=== PATIENT | male | born 1975 | race Caucasian/White ===

== ENCOUNTER 2019-12-15 15:00 | Outpatient (RCR) | payer OTHER, MEDICARE, MEDICAID, SELFPAY ==
--- NOTE | 2019-12-20 09:11 | MHC.PT.DC ---
[facility] [place] [facility] [place] Office [place] Office [address] [phone] F: [phone] F: [phone] F: [phone] F: [phone] Physical Therapy Discharge Report Diagnosis: Date of Surgery: N/A Date of Evaluation: 09/27/19 Date of Discharge: 12/20/19 Treatments to Date: 13 Cancellations to Date: 0 No Shows to Date: 2 Discharge Status: Improved Function Independent with HEP Discharge Summary: The patient has full active range of motion and within normal limit strength of his shoulder. He is independent with his home exercise program. He was educated in a return to gym program should he return to his gym routine. The patient is discharged from this physical therapy plan of care. Electronically signed by: Steff Merlos PT, DPT Please sign and return to therapist. Thank you for your referral.
== END 2019-12-20 09:13 | disposition other institution (70) ==
LOC: HO.PT 15:00
PROVIDERS: Visit Provider Internal Medicine
DX: M54.9 Dorsalgia, unspecified (principal); M25.511 Pain in right shoulder; M54.2 Cervicalgia
CPT/HCPCS: 97110

== ENCOUNTER → 2019-12-17 14:15 | Outpatient (BNVA) | payer MEDICARE, MEDICAID, OTHER, SELFPAY | PROVIDERS: PCP Internal Medicine; Visit Provider Urology | DX: R35.1 Nocturia (principal) | CPT/HCPCS: 51798; 81002; 99212 ==

== ENCOUNTER → 2020-04-19 14:17 | Outpatient (BNVA) | payer MEDICARE, MEDICAID, OTHER, SELFPAY | PROVIDERS: PCP Internal Medicine; Visit Provider Urology | DX: N32.0 Bladder-neck obstruction (principal); R35.1 Nocturia | CPT/HCPCS: 81002; 99212 ==

== ENCOUNTER 2020-05-08 07:25 | Day surgery (SDC) | payer MEDICARE, MEDICAID, SELFPAY ==
[2020-04-28 18:48] VITALS: BMI 33.9
--- NOTE | 2020-05-05 11:59 | P.CONAN_ITS ---
Documented by User: Tiffany Luevano 05/05/20 12:00 HPI - Anesthesia Eval Consult details Narrative: 44yo M for Green Light Laser Ablation Prostate PMFSH Active Problems Active Problems: All Active Problems (Updated 04/28/20 @ 18:35 by Meghan Noel RN) Gastroesophageal reflux disease (Acute) Nocturia more than twice per night (Acute) Bladder outlet obstruction (Acute) Shoulder pain (Acute) Pain in back (Acute) Pain in the neck (Acute) Past Medical History Medical History Asthma Bladder outlet obstruction Elevated cholesterol Gastroesophageal reflux disease Pain in back Pain in the neck Shoulder pain Family History Family History Father Diabetes Mother Diabetes Maternal Grandfather Lung cancer Surgical History Surgical History History of open reduction and internal fixation (ORIF) procedure Social History Social History Smoking Status: Current every day smoker Packs Per Day: 1 Cigarettes Per Day: 20.0 Smoked in Last 30 Days: Yes Patient Interested in Nicotine Replacement: No Use of substances other than those prescribed or required for medical reasons: No Have you been hit, kicked, punched, or otherwise hurt by someone within the past year? If so, by whom?: No Advance Directives: No Advance Directives Information Provided: No Advance Directives on File: No Recently lost weight without trying: No Meds Allergies Allergy/AdvReac Type Severity Reaction Status Date / Time fluconazole [From DIFLUCAN] Allergy Mild MOTH SORES Verified 05/08/20 08:49 blossom pure Allergy Mild skin Uncoded 05/08/20 08:49 reaction Home Medications Medication Instructions Recorded Confirmed Last Taken Type cyclobenzaprine 10 mg tablet 10 mg PO Q8H PRN 12/10/19 04/28/20 Unknown History ibuprofen 600 mg tablet 600 mg PO Q8H PRN 12/10/19 04/28/20 Unknown History tamsulosin 0.4 mg capsule 0.4 mg PO DAILY 12/10/19 05/08/20 05/08/20 06:30 History adalimumab 80 mg/0.8 mL (x 1) and ea SUBCUT 04/19/20 Unknown History 40 mg/0.4 mL (x 2) subcutan pen kit Exam Exam Date and Time: May 05, 2020 1159 Height,Weight and Vital Signs: Height 5 ft 6 in Weight 95.254 kg Assessment and Plan Assessment Anesthesia Assessment: Chart Reviewed Documented by User: Nory Pizarro 05/08/20 09:47 [facility] Past Medical History Medical History Asthma Bladder outlet obstruction Elevated cholesterol Gastroesophageal reflux disease Pain in back Pain in the neck Shoulder pain Family History Family History Father Diabetes Mother Diabetes Maternal Grandfather Lung cancer Surgical History Surgical History History of open reduction and internal fixation (ORIF) procedure Social History Social History Smoking Status: Current every day smoker Packs Per Day: 1 Cigarettes Per Day: 20.0 Smoked in Last 30 Days: Yes Patient Interested in Nicotine Replacement: No Use of substances other than those prescribed or required for medical reasons: No Have you been hit, kicked, punched, or otherwise hurt by someone within the past year? If so, by whom?: No Advance Directives: No Advance Directives Information Provided: No Advance Directives on File: No Recently lost weight without trying: No Meds Allergies Allergy/AdvReac Type Severity Reaction Status Date / Time fluconazole [From DIFLUCAN] Allergy Mild MOTH SORES Verified 05/08/20 08:49 blossom pure Allergy Mild skin Uncoded 05/08/20 08:49 reaction Home Medications Medication Instructions Recorded Confirmed Last Taken Type cyclobenzaprine 10 mg tablet 10 mg PO Q8H PRN 12/10/19 04/28/20 Unknown History ibuprofen 600 mg tablet 600 mg PO Q8H PRN 12/10/19 04/28/20 Unknown History tamsulosin 0.4 mg capsule 0.4 mg PO DAILY 12/10/19 05/08/20 05/08/20 06:30 History adalimumab 80 mg/0.8 mL (x 1) and ea SUBCUT 04/19/20 Unknown History 40 mg/0.4 mL (x 2) subcutan pen kit Exam Airway Mallampati Class: II TM Dist: >3cm Neck ROM: Full Assessment and Plan Assessment Anesthesia Assessment: Anesthesia Plan Discussed and Chart Reviewed Final Anesthetic Review NPO: Yes ASA Class: II Final Preanesthetic Review: No Changes in Pt Med Stat, Meds/Allgs Chart Reviewed, Consent Obtained/Reviewed and Anes Risks/Benef Reviewed Patient Risk: Low Procedure Risk: Low Assessment/Block/Sedation in SS: Assess/Block/Sedation-SS Anesthetic Plan Anesthetic Plan: GA Disposition: Standard PACU
[2020-05-08 08:51] VITALS: BP 136/78; PULSE 83; RESP 18; TEMP 36.9; O2SAT 96
--- NOTE | 2020-05-08 09:05 | MHC.SHP ---
Pre-Procedural Eval Section A The patient is an INPATIENT: No Changes since office visit: No Cold of Flu in the past 2 weeks, No New Medical Problems, No Changes in Medication and No Patient answered all questions The History & Physical has been completed within 30 days and I have reviewed it.: Yes Section B Chief Complaint: Bladder Neck Obstruction Allergies: Allergies Allergy/AdvReac Type Severity Reaction Status Date / Time fluconazole [From DIFLUCAN] Allergy Mild MOTH SORES Verified 05/08/20 08:49 blossom pure Allergy Mild skin Uncoded 05/08/20 08:49 reaction Plan Diagnosis/Plan: Unchanged (Laser of the prostate) I have reviewed the history and physical and performed a pertinent physical examination on my patient. No changes have occurred unless specified.
[2020-05-08] MEDS: Lactated Ringers 1,000 ML 100 ML IVCONT (09:09)
[2020-05-08] MEDS: levoFLOXacin 500 MG TABLET PO (09:13)
--- NOTE | 2020-05-08 09:58 | PC.NURSE ---
MIINIMAL EXPIRATORY WHEEZES, GREATER ON THE LEFT SIDE.
--- NOTE | 2020-05-08 10:14 | MHC.SHP ---
Pre-Procedural Eval Section A The patient is an INPATIENT: No Changes since office visit: No Cold of Flu in the past 2 weeks, No New Medical Problems, No Changes in Medication and No Patient answered all questions The History & Physical has been completed within 30 days and I have reviewed it.: Yes Section B Chief Complaint: Bladder Neck Obstruction Allergies: Allergies Allergy/AdvReac Type Severity Reaction Status Date / Time fluconazole [From DIFLUCAN] Allergy Mild MOTH SORES Verified 05/08/20 08:49 blossom pure Allergy Mild skin Uncoded 05/08/20 08:49 reaction Plan Diagnosis/Plan: Unchanged (Laser incision of the prostate) I have reviewed the history and physical and performed a pertinent physical examination on my patient. No changes have occurred unless specified.
--- NOTE | 2020-05-08 10:22 | PC.NURSE ---
RESPIRATORY THERAPIST ASSESSED PATIENT AND DIDN'T FEEL LIKE PATIENT REQUIRED A RESP TXMENT AT THIS TIME.
--- NOTE | 2020-05-08 10:53 | P.OP_ITS ---
Operative Note Operative Note Date of Service: 05/08/20 Narrative: PreOperative Diagnosis: Bladder outlet obstruction Post Operative Diagnosis: Bladder outlet obstruction Procedure: Laser ablation of the prostate Surgeon: Dr Driss Shelton Anesthesia: General Indications for procedure: Has been on alpha blockers for number of years. Would like to come office medication. Did not tolerate tamsulosin alfuzosin. Is aware the risks and benefits particularly related to retrograde ejaculation. Procedure: After informed consent was verified the patient was brought to the operating room and placed in a supine position. Anesthesia was administered per protocol. The patient was placed in modified dorsal lithotomy position and prepped and draped in sterile fashion. Safety pause time-out was performed. Antibiotics have been given. Twenty-four Kinyarwanda laser cystoscope was inserted. There was a tight bladder neck. Of note the bladder had moderate to severe trabeculation with the beginnings of diverticular changes on the posterior wall. Right ureteric orifice was rounded golf hole shaped. Using the GreenLight laser with settings of 80 w incisions were made at the 5 and 7 o'clock position. These were taken down to the bladder neck. Intervening tissue was ablated. They will widened to allow long passage. He had a short prostate and less than 10 kilojoules of energy was used. All bleeding was controlled Twenty-two Kinyarwanda Bee catheter was placed without difficulty. 30 cc in the balloon. Bladder was drained. A B&O suppository was given for post operative management. Pathology: None Drains: Twenty-two Kinyarwanda Bee catheter
--- NOTE | 2020-05-08 10:53 | PM.OP ---
Brief Operative Note Date of Service: 05/08/20 Pre-op diagnosis: Bladder outlet obstruction Post-op diagnosis: same Procedure: Laser ablation prostate Surgeon: Driss Shelton MD Anesthesia: GLMA Estimated blood loss (mL): 0 Pathology: none sent Condition: stable Disposition: same day
[2020-05-08 10:55] VITALS: BP 116/63; PULSE 81; RESP 20; TEMP 36.5; O2SAT 98
[2020-05-08 11:00] VITALS: BP 111/65; PULSE 77; RESP 16; O2SAT 97
[2020-05-08 11:05] VITALS: BP 118/74; PULSE 75; RESP 16; O2SAT 97
[2020-05-08 11:10] VITALS: BP 118/71; PULSE 78; RESP 16; O2SAT 96
[2020-05-08] MEDS: Acetaminophen 325 MG TABLET 650 MG PO (11:22)
[2020-05-08 11:25] VITALS: BP 127/60; PULSE 79; RESP 16; TEMP 36.5; O2SAT 95
[2020-05-08] MEDS: oxyCODONE HCl Immed Release 5 MG TABLET PO (11:50)
== END 2020-05-08 12:09 | disposition home or self-care (01) ==
PROVIDERS: PCP Internal Medicine; Visit Provider Urology
PROC: 0V507ZZ Destruction of Prostate, Via Natural or Artificial Opening (ICD-10-PCS; CPT 52648; principal; 2020-05-08 09:40)
DX: N32.0 Bladder-neck obstruction (principal); N32.89 Other specified disorders of bladder; J45.909 Unspecified asthma, uncomplicated; F17.210 Nicotine dependence, cigarettes, uncomplicated; Z79.899 Other long term (current) drug therapy; Z88.8 Allergy status to other drugs, medicaments and biological substances
CPT/HCPCS: 52648; J1100; J2250; J2405; J3010

== ENCOUNTER → 2020-05-10 08:43 | Outpatient (BNVA) | payer MEDICARE, MEDICAID, SELFPAY | PROVIDERS: PCP Internal Medicine; Visit Provider Urology | DX: N32.0 Bladder-neck obstruction (principal); R35.1 Nocturia | CPT/HCPCS: 51700; 51798; 99212 ==

== ENCOUNTER 2020-06-14 15:00 | Emergency (ER) | payer OTHER, SELFPAY ==
--- NOTE | ~2020-06-14 | CT_ITS ---
EXAMINATION: CT HEAD WITHOUT CONTRAST CT CERVICAL SPINE WITHOUT CONTRAST CLINICAL INFORMATION: Fall. COMPARISON: CT head 08/31/2013. TECHNIQUE: Contiguous axial imaging of the head was performed without the administration of IV contrast. Axial multidetector volumetric images were also performed through the cervical spine without contrast. Multiplanar reconstructed images in coronal and sagittal orientations were submitted. DOSE: 800 mGy-cm FINDINGS: HEAD: There is no evidence of acute intracranial hemorrhage or territorial infarction. No abnormal mass-effect or midline shift. No extra-axial fluid collections. Dhaliwal to white matter differentiation is well preserved. The ventricles are normal in size and configuration. No acute calvarial fracture. The sinuses and mastoid air cells are clear. CERVICAL SPINE: Vertebral body heights are normal. No fractures of the vertebral bodies or posterior elements. Unfused posterior arch of C1. Vertebral alignment is normal. The craniocervical and atlantoaxial articulations are maintained. Severe C5-C6 disc degeneration. No significant paravertebral soft tissue swelling. No suspicious thyroid findings. Mild right apical emphysematous changes and pleural parenchymal scarring. CT/CT head/brain wo con IMPRESSION: 1. No CT evidence of acute intracranial pathology. 2. No CT evidence of acute fracture or malalignment in the cervical spine. 3. Severe C5-C6 disc degeneration.
--- NOTE | ~2020-06-14 | CT_ITS ---
EXAMINATION: CT CHEST, ABDOMEN AND PELVIS WITH CONTRAST. CLINICAL INFORMATION: Reason for Exam fall. rib fractures? abdominal bleed? . COMPARISON: No pertinent prior studies are available for comparison. TECHNIQUE: Multidetector volumetric imaging was performed from the thoracic inlet through the pubic symphysis following the administration of: Oral contrast: None Intravenous contrast: 85 mL Omnipaque 350 No contrast reaction reported Sagittal and coronal reformatted images were obtained on the technologist workstation. In addition, thin section, high resolution reconstruction, targeted reformatted images through the thoracic and lumbar spine were obtained with coronal and sagittal high resolution reformatted images as well. This CT examination was performed using dose optimization techniques as appropriate, variously including the following: *Automated exposure control *Adjustment of mA and/or kV according to patient size (this includes techniques or standardized protocols for targeted exams where dose is matched to indication/reason for exam; i.e. extremities or head) *Use of iterative reconstruction technique Total exam dose-length product 1340 mGy-cm FINDINGS: CHEST: VASCULAR: The aorta is normal; no evidence of dissection, aneurysm, or traumatic aortic injury. The central pulmonary arteries enhance normally. AORTIC ISTHMUS: Normal. MEDIASTINUM: No mediastinal fluid or hematoma. No hilar or mediastinal lymphadenopathy. LUNG:. Fissural right upper lobe nodule is present measuring 7 mm in size probably a perifissural lymph node. No other nodules, masses, or focal consolidation. Dependent atelectasis/groundglass change is present. PLEURA: No pleural effusion. No pneumothorax. No pleural mass or thickening. CHEST WALL/AXILLA: Unremarkable. ABDOMEN/PELVIS : LIVER : The liver is normal in size, shape, and attenuation. A 5 mm cyst is noted adjacent to the gallbladder. No worrisome focal hepatic lesion or biliary ductal dilatation is present. GALLBLADDER, AND BILIARY TREE The gallbladder is unremarkable with no evidence of radiopaque gallstones, gallbladder wall thickening, or obvious pericholecystic inflammatory changes. PANCREAS: Normal; no mass or surrounding fluid. SPLEEN: Normal size. No focal lesion. ADRENAL GLANDS: Normal; no mass. KIDNEYS AND URETERS: The kidneys are normal in size, shape, and attenuation. Mild UPJ type obstruction is seen on the right kidney with dilatation of the renal pelvis and mild pelvocaliectasis. No left-sided hydronephrosis hydronephrosis, hydroureter, or calculi. URINARY BLADDER: Symmetric bladder wall thickening is seen. GASTROINTESTINAL TRACT: A small hiatal hernia is present. Stomach and small bowel non-dilated. No colonic wall thickening or pericolonic inflammatory changes. Normal appendix. VASCULAR STRUCTURES: There is no evidence of aortic or iliac injury. The inferior vena cava is intact. ACTIVE BLEEDING: None LYMPH NODES: No lymphadenopathy. The aorta is unremarkable the exception of calcific atherosclerotic plaque.. PELVIC VISCERA: Mildly prominent prostate with normal-appearing seminal vesicles. FREE FLUID: None. ABDOMINAL WALL: No significant hernia is appreciated. OSSEOUS STRUCTURES : There is a fracture of the 11th left posterior rib. No associated hematoma is seen. No other fractures are seen. No clavicle or scapula fracture. No sternal fracture seen. Normal sagittal alignment of the thoracic and lumbar spine. Vertebral body and disc heights are maintained; no compression fracture. Posterior elements intact. No sacral or pelvic fracture, The visualized hips are intact. CT/CT abdomen pelvis w con IMPRESSION: Acute fracture of left posterior 11th rib. No evidence of hemorrhage. No other fractures are seen. No active bleeding is seen. No evidence of a visceral organ injury in the abdomen or pelvis. Incidental note made of perifissural lymph node, hepatic steatosis, right UPJ obstruction and symmetric wall thickening of the bladder.
--- NOTE | ~2020-06-14 | XR_ITS ---
EXAMINATION: XR RIBS, LEFT CLINICAL INFORMATION: Fall. Struck left side of ribs on truck. COMPARISON: Previous chest x-ray August 2013 TECHNIQUE: 3 views of the left ribs were obtained. FINDINGS: The cardiac and mediastinal contours are normal. The lungs are clear. There is slight elevation of the right hemidiaphragm similar to previous exam. There is no pleural effusion or pneumothorax. There is slight cortical thickening and angulation of the left anterior seventh and eighth rib fractures questionable for old trauma. No definite acute rib fracture is seen. Bony structures are otherwise unremarkable. XR/XR ribs LT min 3V w [id number] IMPRESSION: Question old trauma to the left anterior seventh and eighth ribs. No acute fracture seen.
--- NOTE | ~2020-06-14 | CT_ITS ---
EXAMINATION: CT HEAD WITHOUT CONTRAST CT CERVICAL SPINE WITHOUT CONTRAST CLINICAL INFORMATION: Fall. COMPARISON: CT head 08/31/2013. TECHNIQUE: Contiguous axial imaging of the head was performed without the administration of IV contrast. Axial multidetector volumetric images were also performed through the cervical spine without contrast. Multiplanar reconstructed images in coronal and sagittal orientations were submitted. DOSE: 800 mGy-cm FINDINGS: HEAD: There is no evidence of acute intracranial hemorrhage or territorial infarction. No abnormal mass-effect or midline shift. No extra-axial fluid collections. Dhaliwal to white matter differentiation is well preserved. The ventricles are normal in size and configuration. No acute calvarial fracture. The sinuses and mastoid air cells are clear. CERVICAL SPINE: Vertebral body heights are normal. No fractures of the vertebral bodies or posterior elements. Unfused posterior arch of C1. Vertebral alignment is normal. The craniocervical and atlantoaxial articulations are maintained. Severe C5-C6 disc degeneration. No significant paravertebral soft tissue swelling. No suspicious thyroid findings. Mild right apical emphysematous changes and pleural parenchymal scarring. CT/CT cervical spine wo con IMPRESSION: 1. No CT evidence of acute intracranial pathology. 2. No CT evidence of acute fracture or malalignment in the cervical spine. 3. Severe C5-C6 disc degeneration.
[2020-06-14 15:19] VITALS: BP 135/80; PULSE 88; RESP 20; TEMP 36.1; O2SAT 98; BMI 34.7
[2020-06-14 17:06] LABS: MANUAL DIFF FLAG NO
[2020-06-14] MEDS: Morphine Sulfate 4 MG/ML CARTRIDGE IVPUSH ×2 (17:07→19:03)
[2020-06-14 17:11] LABS: Basophils Percent Auto 0.2 % (0-2); Eosinophils Absolute Auto 0.1 X10*3/uL (0.0-0.4); Eosinophils Percent Auto 0.4 % (0-4); Hematocrit 47.5 % (42-52); Hemoglobin 15.3 g/dl (14.0-18.0); Imm Gran Abs Auto 0.08 X10*3/uL (0.00-0.03); Imm Gran Pct Auto 0.4 % (0.0-0.4); Lymphocytes Absolute Auto 2.6 X10*3/uL (1.2-4.9); Lymphocytes Percent Auto 14.2 % (20-40); Mean Corpuscular HGB Conc 32.2 g/dl (31.0-36.0); Mean Corpuscular Hemoglobin 21.6 pg (27.0-33.0); Mean Corpuscular Volume 67.1 fL (80-98); Mean Platelet Volume 9.8 fL (9.4-12.4); Monocytes Absolute Auto 0.7 X10*3/uL (0.1-1.2); Neutrophils Absolute Auto 14.7 X10*3/uL (2.0-8.3); Neutrophils Percent Auto 80.8 % (45-73); Platelet Count 223 X10*3/uL (160-400); Red Blood Count 7.08 X10*6/uL (4.60-5.80); Red Cell Distribution Width 17.2 % (11.0-16.0); White Blood Count 18.2 X10*3/uL (4.8-10.8)
[2020-06-14] MEDS: 0.9 % Sodium Chloride 1,000 ML 999 ML IV (17:12)
[2020-06-14 17:34] LABS: Alanine Aminotransferase 25 U/L (0-40); Albumin Level 4.9 g/dL (3.5-5.0); Alkaline Phosphatase 60 U/L (39-117); Anion Gap 15 (12-20); Aspartate Amino Transferase 21 U/L (5-37); Blood Urea Nitrogen 16 mg/dL (9-16); Carbon Dioxide 24 mmol/L (22-29); Chloride 105 mmol/L (96-108); Creatinine Clr Calc Pharmacy 96.5; Estimated Glomerular Filt Rate > 60; Glucose Random 83 mg/dL (60-115); Potassium 3.9 mmol/L (3.3-5.1); Sodium 140 mmol/L (135-145); Total Protein 7.5 g/dL (6.5-8.0)
[2020-06-14 17:45] VITALS: BP 158/88; PULSE 82; RESP 14; TEMP 37.3; O2SAT 98
[2020-06-14 17:58] LABS: Prothrombin Time 12.1 SEC (10.8-13.0)
[2020-06-14 18:00] LABS: Partial Thromboplastin Time 30.8 SEC (24.1-38.0)
--- NOTE | 2020-06-14 18:44 | ED.FALL ---
HPI - Fall General Chief Complaint: Fall Stated Complaint: FALL RIB INJ Time Seen by Provider: 06/14/20 17:31 Source: patient Mode of arrival: ambulatory Limitations: no limitations History of Present Illness HPI Narrative: Patient presents to ED for left rib pain after falling into metal container from a truck. Patient states he hit his left chest onto the medical container. Patient denies hitting head or loss of consciousness. Patient states having chest pain that is worse on movement. Patient states trauma occurred today. Patient states he fell because he lost his footing. Related Data Home Medications Medication Instructions Recorded Confirmed cyclobenzaprine 10 mg tablet 10 mg PO Q8H PRN 12/10/19 05/19/20 ibuprofen 600 mg tablet 600 mg PO Q8H PRN 12/10/19 05/19/20 adalimumab 80 mg/0.8 mL (x 1) and ea SUBCUT 04/19/20 05/19/20 40 mg/0.4 mL (x 2) subcutan pen kit prednisone 10 mg tablet 0 mg PO 05/10/20 05/19/20 Previous Rx's Medication Instructions Recorded albuterol sulfate 90 mcg/actuation 1 inh INHALATION Q6H PRN #8.5 g 12/10/19 aerosol inhaler alfuzosin 10 mg tablet,extended 10 mg PO DAILY 30 Days #30 tab 12/21/19 release 24 hr tramadol 50 mg PO Q6H PRN 7 Days #14 tab 05/08/20 trimethoprim 100 mg PO Q12H 10 Days #20 tab 05/08/20 tamsulosin 0.4 mg capsule 0.4 mg PO BEDTIME 90 Days #90 cap 05/10/20 albuterol sulfate 90 mcg/actuation 1 inh INHALATION Q4-6H PRN #8.5 g 05/19/20 aerosol inhaler amoxicillin 875 mg-potassium 1 tab PO BID #20 tab 05/19/20 clavulanate 125 mg tablet famotidine 40 mg tablet 40 mg PO BEDTIME #30 tab 05/19/20 prednisone 10 mg tablet 10 mg PO .COMPLEX #45 tab 05/19/20 naproxen 500 mg PO BID PRN #20 tab 06/14/20 oxycodone-acetaminophen [Percocet] 1 tab PO TID PRN #9 tab 06/14/20 Allergies Allergy/AdvReac Type Severity Reaction Status Date / Time fluconazole [From DIFLUCAN] Allergy Mild MOTH SORES Verified 05/19/20 12:00 blossom pure Allergy Mild skin Uncoded 05/19/20 12:00 reaction Review of Systems Review of Systems: Yes all other systems are reviewed and are negative Constitutional: Constitutional: Reports as per HPI and Reports no additional constitutional complaints Eyes: Eyes: Reports as per HPI and Reports no additional eye complaints ENT: Reports system reviewed and no additional complaints, except as documented and Reports as per HPI Cardiovascular: Cardiovascular: Reports as per HPI, Reports no additional cardiovascular complaints and Reports chest pain (Left lower rib pain) Respiratory: Respiratory: Reports as per HPI and Reports no additional respiratory complaints Gastrointestinal: Gastrointestinal: Reports as per HPI and Reports no additional gastrointestinal complaints Genitourinary: Genitourinary: Reports no additional male genitourinary complaints and Reports as per HPI Musculoskeletal: Musculoskeletal: Reports no additional musculoskeletal complaints and Reports as per HPI Neurologic: Reports system reviewed and no additional complaints, except as documented Psychiatric: Psychiatric: Reports no additional psychiatric complaints and Reports as per HPI PMF Past Medical History Medical History Asthma Bladder outlet obstruction Elevated cholesterol Gastroesophageal reflux disease Pain in back Pain in the neck Shoulder pain Surgical History History of open reduction and internal fixation (ORIF) procedure Family History Family History Father Diabetes Mother Diabetes Maternal Grandfather Lung cancer Social History Social History Smoking Status: Current every day smoker Packs Per Day: 1 Cigarettes Per Day: 20.0 Smoked in Last 30 Days: Yes Use of substances other than those prescribed or required for medical reasons: No Advance Directives: No Advance Directives Information Provided: Yes Physical Exam Vital Signs: Vital Signs: Last Vital Signs Temp 98.3 F 06/14/20 19:53 Pulse 76 06/14/20 20:07 Resp 15 06/14/20 20:07 BP 114/84 06/14/20 20:07 Pulse Ox 97 06/14/20 20:07 Body Mass Index 34.7 Const: General: cooperative, healthy appearing, comfortable, well developed and acute distress Orientation/consciousness: patient oriented x3 HENMT: Head: Yes normal to inspection, Yes No palpable skull fracture present, Yes normocephalic, Yes atraumatic, No abrasion, No Schaeffer's sign, No contusion, No cranial bruits, No hematoma, No laceration, No occipital foramen tenderness, No palpable skull fracture, No raccoon eyes, No scalp lesion, No scalp tenderness, No Temporal artery tenderness present and No periorbital ecchymosis Eyes: General: appearance normal, both eyes and all related structures Neck: Neck: Yes normal visual inspection, Yes full ROM, Yes no lymphadenopathy, Yes no meningeal signs, Yes trachea midline, Yes supple and No tender Chest: Other: Positive for left lower rib tenderness on palpation. Chest palpation & inspection: normal inspection of the chest Resp: Effort & Inspection: normal respiratory effort and able to speak in complete sentences Auscultation: clear to auscultation bilaterally Cardio: Jugular venous distension: no JVD Heart sounds: S1 normal heart sound present and S2 normal heart sound present GI: Inspection: Yes normal to inspection and No abdominal wall ecchymosis Palpation (GI): Soft to palpation, not firm, Tenderness to palpation present (GI) in the LUQ, no guarding and not rigid : General: No CVA tenderness and Yes no CVA tenderness Back/Spine/Pelvis: Back: no CVA tenderness, No CVA tenderness and No back tenderness Skin: General skin exam: no rashes or lesions noted and elasticity normal Neuro: General: patient oriented x3, no meningeal signs and CN's II-XI intact bilaterally Cranial nerves: Yes CN's II-XII intact bilaterally Extrem: General: Yes normal to inspection and Yes full ROM Psych: Appearance: grossly normal, well kempt and not disheveled Course Course Course Narrative: Patient x-ray came back negative for any fractures, but due to patient having severe pain on palpation of left chest left upper quadrant was sent for CT to make sure there is no fracture or bleed in the abdomen or chest. Patient will have lab draws and given IV fluids. Reevaluation(s) Reevaluation #1: Head CT and C-spine results not yet back. Abdominal CT scan negative for any abdominal bleeding or organ laceration. Chest CT shows left rib fracture. Abdominal CT shows UPJ obstruction which could be follow up as outpatient. Patient white blood cell count usually elevated when trended. No source of infection. Incentive spirometry ordered. Reevaluation #2: Head CT/C-spine came back normal. Patient discharged with pain medication. Patient given copy of labs and images cycle follow-up with PCP and Urologist. Patient informed of UPJ obstruction and told to inform his urologist about this. Patient educated on the importance of using incentive spirometry to prevent lung collapse/pneumonia. Once again patient has history of elevated white blood cell count as trended by computer system. No source of infection. Patient presents to ED for mechanical fall onto left chest/left upper abdomen. MDM - Fall MDM Narrative Medical decision making narrative: Left 11th rib fracture Lab Data Result diagrams: 06/14/20 17:00 06/14/20 17:00 Labs: Lab Results 06/14/20 06/14/20 06/14/20 Range/Units 17:00 17:00 17:00 WBC 18.2 H (4.8-10.8) X10*3/uL RBC 7.08 H (4.60-5.80) X10*6/uL Hgb 15.3 (14.0-18.0) g/dl Hct 47.5 (42-52) % MCV 67.1 L (80-98) fL MCH 21.6 L (27.0-33.0) pg MCHC 32.2 (31.0-36.0) g/dl RDW 17.2 H (11.0-16.0) % Plt Count 223 (160-400) X10*3/uL MPV 9.8 (9.4-12.4) fL Immature Gran % (Auto) 0.4 (0.0-0.4) % Neut % (Auto) 80.8 H (45-73) % Lymph % (Auto) 14.2 L (20-40) % Teller % (Auto) 4.0 (2-11) % Eos % (Auto) 0.4 (0-4) % Baso % (Auto) 0.2 (0-2) % Lymph # (Auto) 2.6 (1.2-4.9) X10*3/uL Teller # (Auto) 0.7 (0.1-1.2) X10*3/uL Eos # (Auto) 0.1 (0.0-0.4) X10*3/uL Baso # (Auto) 0.0 (0.0-0.2) X10*3/uL Abs Immat Gran (auto) 0.08 H (0.00-0.03) X10*3/uL Absolute Neuts (auto) 14.7 H (2.0-8.3) X10*3/uL Absolute Nucleated RBC 0.000 (0.0-0.012) X10*3/uL Nucleated RBC % (auto) 0.0 (0.0-0.2) /100WBC PT 12.1 (10.8-13.0) SEC INR 1.0 (0.9-1.1) APTT 30.8 (24.1-38.0) SEC Sodium 140 (135-145) mmol/L Potassium 3.9 (3.3-5.1) mmol/L Chloride 105 (96-108) mmol/L Carbon Dioxide 24 (22-29) mmol/L Anion Gap 15 (12-20) BUN 16 (9-16) mg/dL Creatinine 1.09 (0.5-1.4) mg/dL Estim Creat Clear Calc 96.5 Estimated GFR > 60 Random Glucose 83 (60-115) mg/dL Calcium 10.0 (8.4-10.2) mg/dL Total Bilirubin 1.0 (0.0-1.0) mg/dL AST 21 (5-37) U/L ALT 25 (0-40) U/L Alkaline Phosphatase 60 (39-117) U/L Total Protein 7.5 (6.5-8.0) g/dL Albumin 4.9 (3.5-5.0) g/dL Urine Color Urine Appearance Urine pH (5.0-8.0) Ur Specific [place] (1.005-1.025) Urine Protein (NEG-TRACE) MG/DL Urine Glucose (UA) (NEG) MG/DL Urine Ketones (NEG) MG/DL Urine Blood (NEG) Urine Nitrite (NEG) Ur Leukocyte Esterase (NEG) 06/14/20 06/14/20 Range/Units 17:00 19:38 WBC (4.8-10.8) X10*3/uL RBC (4.60-5.80) X10*6/uL Hgb (14.0-18.0) g/dl Hct (42-52) % MCV (80-98) fL MCH (27.0-33.0) pg MCHC (31.0-36.0) g/dl RDW (11.0-16.0) % Plt Count (160-400) X10*3/uL MPV (9.4-12.4) fL Immature Gran % (Auto) (0.0-0.4) % Neut % (Auto) (45-73) % Lymph % (Auto) (20-40) % Teller % (Auto) (2-11) % Eos % (Auto) (0-4) % Baso % (Auto) (0-2) % Lymph # (Auto) (1.2-4.9) X10*3/uL Teller # (Auto) (0.1-1.2) X10*3/uL Eos # (Auto) (0.0-0.4) X10*3/uL Baso # (Auto) (0.0-0.2) X10*3/uL Abs Immat Gran (auto) (0.00-0.03) X10*3/uL Absolute Neuts (auto) (2.0-8.3) X10*3/uL Absolute Nucleated RBC (0.0-0.012) X10*3/uL Nucleated RBC % (auto) (0.0-0.2) /100WBC PT Cancelled (10.8-13.0) SEC INR Cancelled (0.9-1.1) APTT (24.1-38.0) SEC Sodium (135-145) mmol/L Potassium (3.3-5.1) mmol/L Chloride (96-108) mmol/L Carbon Dioxide (22-29) mmol/L Anion Gap (12-20) BUN (9-16) mg/dL Creatinine (0.5-1.4) mg/dL Estim Creat Clear Calc Estimated GFR Random Glucose (60-115) mg/dL Calcium (8.4-10.2) mg/dL Total Bilirubin (0.0-1.0) mg/dL AST (5-37) U/L ALT (0-40) U/L Alkaline Phosphatase (39-117) U/L Total Protein (6.5-8.0) g/dL Albumin (3.5-5.0) g/dL Urine Color YELLOW Urine Appearance CLEAR Urine pH 5.5 (5.0-8.0) Ur Specific [place] >= 1.030 H (1.005-1.025) Urine Protein TRACE (NEG-TRACE) MG/DL Urine Glucose (UA) NEG (NEG) MG/DL Urine Ketones 15 (NEG) MG/DL Urine Blood NEG (NEG) Urine Nitrite NEG (NEG) Ur Leukocyte Esterase NEG (NEG) Discharge Plan Discharge Clinical Impression: Fracture of rib Patient Disposition: Home, Self-Care Instructions: Rib Fracture (ED) Additional Instructions: Return to ED for worsening chest pain, coughing up blood, abdominal pain, rectal bleeding, vomiting blood, headache, dizziness, weakness, or any other concerning symptoms. Please use incentive spirometer every hour to prevent lung collapse. Abdominal CT scan showed ureteropelvic junction obstruction. Please follow-up with your urologist. Please follow-up with PCP Prescriptions: New naproxen 500 mg tablet 500 mg PO BID PRN (Reason: pain) Qty: 20 RF: 0 oxycodone-acetaminophen [Percocet] 5-325 mg tablet 1 tab PO TID PRN (Reason: pain) Qty: 9 RF: 0 No Action alfuzosin 10 mg tablet extended release 24 hr 10 mg PO DAILY 30 Days Qty: 30 RF: 1 tramadol 50 mg tablet 50 mg PO Q6H PRN (Reason: pain (scale score 4-6)) 7 Days Qty: 14 RF: 0 trimethoprim 100 mg tablet 100 mg PO Q12H 10 Days Qty: 20 RF: 0 prednisone 10 mg tablet 10 mg PO .COMPLEX Qty: 45 RF: 0 amoxicillin-pot clavulanate [Augmentin] 875-125 mg tablet 1 tab PO BID Qty: 20 RF: 0 albuterol sulfate [Ventolin HFA] 90 mcg/actuation HFA aerosol inhaler 1 inh inhalation Q4-6H PRN (Reason: shortness of breath or wheezing) Qty: 8.5 RF: 2 famotidine [Pepcid] 40 mg tablet 40 mg PO BEDTIME Qty: 30 RF: 2 ibuprofen 600 mg tablet 600 mg PO Q8H PRN (Reason: pain) RF: 0 cyclobenzaprine 10 mg tablet 10 mg PO Q8H PRN (Reason: muscle spasm) RF: 0 albuterol sulfate [Ventolin HFA] 90 mcg/actuation HFA aerosol inhaler 1 inh inhalation Q6H PRN (Reason: shortness of breath or wheezing) Qty: 8.5 RF: 2 tamsulosin 0.4 mg capsule 0.4 mg PO BEDTIME 90 Days Qty: 90 RF: 0 adalimumab 80 mg/0.8 mL-40 mg/0.4 mL pen injector kit subcut RF: 0 prednisone 10 mg tablet 0 mg PO RF: 0 Stand Alone Forms: Work/School Release Interventions: ED Discharge Assessment Last Done: 06/14/20 21:13 Discharge Date/Time: 06/14/20 21:13 Print Language: Croatian
[2020-06-14] MEDS: iohexoL 350 MG/ML 100 ML INFUS..BTL IV (18:55)
[2020-06-14 19:53] VITALS: BP 114/84; PULSE 76; RESP 18; TEMP 36.8; O2SAT 95
[2020-06-14 19:54] LABS: Appearance Urine CLEAR; Color Urine YELLOW; Glucose Urine UA NEG (NEG); Leukocyte Esterase Urine NEG (NEG); Nitrite Urine NEG (NEG); PH 5.5 (5.0-8.0); Specific Gravity - Urine >= 1.030 (1.005-1.025); Urine Blood NEG (NEG); Urine Ketones 15 MG/DL (NEG); Urine Protein TRACE MG/DL (NEG-TRACE)
[2020-06-14 20:07] VITALS: BP 114/84; PULSE 76; RESP 15; O2SAT 97
[2020-06-14] MEDS: oxyCODONE HCl Immed Release 5 MG TABLET PO (21:01)
== END 2020-06-14 21:13 | disposition home or self-care (01) ==
PROVIDERS: Physician Assistant; Emergency Provider Internal Medicine; PCP Internal Medicine
DX: S22.32XA Fracture of one rib, left side, initial encounter for closed fracture (principal); S27.9XXA Injury of unspecified intrathoracic organ, initial encounter; R07.81 Pleurodynia; G44.309 Post-traumatic headache, unspecified, not intractable; M54.2 Cervicalgia; R10.84 Generalized abdominal pain; Y29.XXXA Contact with blunt object, undetermined intent, initial encounter; Y93.9 Activity, unspecified; Y92.812 Truck as the place of occurrence of the external cause; Y99.9 Unspecified external cause status; Z79.899 Other long term (current) drug therapy; F17.210 Nicotine dependence, cigarettes, uncomplicated; Z71.6 Tobacco abuse counseling
CPT/HCPCS: 36415; 70450; 71101; 71260; 72125; 74177; 80053; 81003; 85025; 85610; 85730; 96361; 96365; 96375; 99284; J2270; Q9967

== ENCOUNTER → 2020-06-23 15:24 | Outpatient (BNVA) | payer OTHER, SELFPAY | PROVIDERS: PCP Internal Medicine; Referring Provider Internal Medicine; Visit Provider Urology | DX: N40.1 Benign prostatic hyperplasia with lower urinary tract symptoms (principal); R35.0 Frequency of micturition | CPT/HCPCS: 51798; 99212 ==

== ENCOUNTER 2020-07-04 11:26 | Outpatient (REF) | payer OTHER, SELFPAY ==
[2020-07-04 12:12] LABS: MANUAL DIFF FLAG NO
[2020-07-04 12:17] LABS: Basophils Percent Auto 0.4 % (0-2); Eosinophils Absolute Auto 0.2 X10*3/uL (0.0-0.4); Eosinophils Percent Auto 1.8 % (0-4); Hematocrit 42.5 % (42-52); Hemoglobin 13.6 g/dl (14.0-18.0); Imm Gran Abs Auto 0.02 X10*3/uL (0.00-0.03); Imm Gran Pct Auto 0.2 % (0.0-0.4); Lymphocytes Absolute Auto 3.7 X10*3/uL (1.2-4.9); Lymphocytes Percent Auto 39.1 % (20-40); Mean Corpuscular Hemoglobin 21.7 pg (27.0-33.0); Mean Corpuscular Volume 67.9 fL (80-98); Mean Platelet Volume 9.9 fL (9.4-12.4); Monocytes Absolute Auto 0.7 X10*3/uL (0.1-1.2); Monocytes Percent Auto 7.4 % (2-11); Neutrophils Absolute Auto 4.8 X10*3/uL (2.0-8.3); Neutrophils Percent Auto 51.1 % (45-73); Platelet Count 299 X10*3/uL (160-400); Red Blood Count 6.26 X10*6/uL (4.60-5.80); Red Cell Distribution Width 16.7 % (11.0-16.0); White Blood Count 9.5 X10*3/uL (4.8-10.8)
== END 2020-07-04 11:27 | disposition home or self-care (01) ==
LOC: HO.LAB 11:26
PROVIDERS: PCP Internal Medicine; Visit Provider Internal Medicine
DX: D72.829 Elevated white blood cell count, unspecified (principal)
CPT/HCPCS: 36415; 85025

== ENCOUNTER → 2020-10-20 12:04 | Outpatient (BNVA) | payer OTHER, SELFPAY | PROVIDERS: PCP Internal Medicine; Visit Provider Urology | DX: Z13.89 Encounter for screening for other disorder (principal) | CPT/HCPCS: Q3014 ==

== ENCOUNTER → 2021-06-13 15:02 | Outpatient (BNVA) | payer OTHER, SELFPAY | PROVIDERS: PCP Internal Medicine; Visit Provider Urology | DX: N32.0 Bladder-neck obstruction (principal) | CPT/HCPCS: 51798; 99212 ==

== ENCOUNTER → 2021-07-06 14:55 | Outpatient (BNVA) | payer OTHER, SELFPAY | PROVIDERS: PCP Internal Medicine; Visit Provider Urology | DX: N40.1 Benign prostatic hyperplasia with lower urinary tract symptoms (principal); R35.0 Frequency of micturition | CPT/HCPCS: 52000; 99212 ==

== ENCOUNTER 2021-08-30 17:39 | Outpatient (REF) | payer OTHER, SELFPAY ==
[2021-08-30 18:42] LABS: Influenza A PCR NEGATIVE (Negative); Influenza B PCR NEGATIVE (Negative); Resp Syncy Virus RNA Qual PCR NEGATIVE (Negative); SARS COV2 PCR INHOUSE POSITIVE (Negative)
== END 2021-08-30 17:40 | disposition home or self-care (01) ==
LOC: HO.LNP 17:39
DX: Z20.822 Contact with and (suspected) exposure to COVID-19 (principal)
CPT/HCPCS: 0241U

== ENCOUNTER → 2022-01-04 15:13 | Outpatient (BNVA) | payer OTHER, SELFPAY | PROVIDERS: Visit Provider Urology | DX: N32.0 Bladder-neck obstruction (principal) | CPT/HCPCS: 51798; 99212 ==